=== PATIENT | female | born 1990 | race Caucasian/White ===

== ENCOUNTER 2017-06-01 09:14 | Day surgery (SDC) | payer OTHER ==
[~2017-06-01] VITALS: Ht 160 cm; Wt 60.2 kg
[~2017-06-01 09:14] MED LIST: MULTIPLE VITAM1 EAC4 PO; Motrin PO; Natalcare Rx,Pramile PO; Percocet 5/325,Endoc PO; Procardia XL,Adalat PO; [UNRECOGNIZED DRUG - REMARK]
[2017-06-01 09:45] VITALS: BP 143/87
[2017-06-01] MEDS ORDERED: MOTRIN600 MG PO (12:00)
[2017-06-01] MEDS ORDERED: NORCO 5/3251 TABLET PO (12:00)
[2017-06-01 13:18] VITALS: BP 127/75
[2017-06-01 14:00] VITALS: BP 113/66
== END 2017-06-01 14:00 | disposition home or self-care (01) ==
LOC: SDC
DX: T83.32XA Displacement of intrauterine contraceptive device, initial encounter (principal); Z87.440 Personal history of urinary (tract) infections
CPT/HCPCS: 88305; J0690; J1885; J2250; J2405; J3010